=== PATIENT | male | born 1980 | race Caucasian/White ===

== ENCOUNTER 2020-05-21 21:50 | Emergency (ER) | payer BC ==
[~2020-05-21] VITALS: Ht 172.7 cm; Wt 83.9 kg
[2020-05-21] MEDS ORDERED: XARELTO10 MG ORAL (22:01)
--- NOTE | 2020-05-21 22:25 | NUR ---
ED Nurse Note: Patient walked into ER c/o left foot injury after hiking at around 1600 today. patient states that his left foot landed and twisted and heard a popping noise. Patient AAO x4, VSS at this time
[2020-05-21] MEDS ORDERED: IBUPROFEN200 M2 ORAL (22:26)
[2020-05-21] MEDS ORDERED: ACETAMINOPHEN500 M3 ORAL (22:26)
--- NOTE | 2020-05-21 22:26 | Diagnostic Imaging Report ---
EXAM: XR Left Foot Complete, 3 or More Views CLINICAL HISTORY: PAIN TECHNIQUE: Frontal, lateral and oblique views of the left foot. COMPARISON: No relevant prior studies available. FINDINGS: Bones/joints: Nondisplaced avulsion fracture at the base of the fifth metatarsal. No dislocation. Soft tissues: Unremarkable. No radiopaque foreign body. IMPRESSION: Fifth metatarsal base nondisplaced avulsion fracture.
--- NOTE | 2020-05-21 22:32 | Emergency Room Report ---
History of Present Illness General Chief Complaint: Lower Extremity Injury Source: Patient Present Illness HPI Patient is a 40-year-old male presents for increased pain to the left foot. Had injury earlier in the day. Prior history of anticoagulant use due to predisposition to venous thrombosis. He reports having inverted his ankle while hiking. [place] that it was a bone crack. Denies any other injury. Injury occurred earlier in the day. Allergies: Coded Allergies: No Known Allergies (Unverified , 05/21/20) COVID-19 Screening Contact w/high risk pt: No Experienced COVID-19 symptoms?: No COVID-19 Testing performed SALES AND MARKETING AGENT: No Patient History Past Medical History: see triage record Reviewed Nursing Documentation: PMH: Agreed; PSxH: Agreed Nursing Documentation-PMH Past Medical History: No History, Except For Review of Systems All Other Systems: negative except mentioned in HPI Physical Exam Vital Signs Date Time Temp Pulse Resp B/P (MAP) Pulse Ox O2 Delivery O2 Flow Rate FiO2 05/21/20 21:57 98.6 86 15 142/90 (107) 95 Room Air Sp02 EP Interpretation: reviewed, normal General Appearance: normal inspection, well appearing, no apparent distress, alert, GCS 15 Head: atraumatic ENT: normal ENT inspection, hearing grossly normal, normal voice Neck: normal inspection, full range of motion, supple, no bony tend Respiratory: normal inspection, lungs clear, normal breath sounds, no respiratory distress, no retraction, no wheezing Cardiovascular #1: regular rate, rhythm, no edema Gastrointestinal: normal inspection, normal bowel sounds, non tender, soft, no guarding, no hernia Genitourinary: no CVA tenderness Musculoskeletal: normal inspection, back normal, normal range of motion, swelling - foot swelling to left foot lateral aspect, no ankle tenderness Neurologic: alert, motor strength/tone normal, vascular surgery physician III-XII nml as tested, oriented x3, responsive, speech normal, normal inspection Psychiatric: normal inspection, judgement/insight normal, mood/affect normal Medical Decision Making Diagnostic Impression: Primary Impression: Foot fracture, left ER Course Patient presented for left foot pain. Differential diagnosis include was not limited to foot fracture, ankle sprain, contusion, muscle injury among others. X-ray imaging was ordered due to patient's recent injury. X imaging of the left foot showed proximal fifth metatarsal fracture which is nondisplaced. Patient was placed in a posterior splint. He was given crutches. Advised to follow-up with orthopedics for reevaluation and treatment. Advised to return if worse. This medical record is generated with [employer] jive developer software. There may be some jive developer discrepancies related to use of this software. Patient given prescription for pain medications. Last Vital Signs Date Time Temp Pulse Resp B/P (MAP) Pulse Ox O2 Delivery O2 Flow Rate FiO2 05/21/20 21:57 98.6 86 15 142/90 (107) 95 Room Air Status: improved Disposition: HOME, SELF-CARE Condition: Stable Scripts Acetaminophen* (ACETAMINOPHEN EXTRA STRENGTH*) 500 Mg Tablet 500 MG ORAL Q8H PRN for Fever/Headache/Mild Pain, #30 TAB Prov: Mono Kelly MD 05/21/20 Ibuprofen (IBUPROFEN) 200 Mg Capsule 200 MG ORAL Q8HR, #30 CAP 0 Refills Prov: Mono Kelly MD 05/21/20 Referrals: NON PHYSICIAN (PCP) Patient Instructions: Metatarsal Fracture Additional Instructions: Follow up with orthopedics. Return if worse. Keep your foot elevated as much as possible. Splint is temporary and should not be used for more than 2-3 days. Mono Kelly MD May 21, 2020 22:32
--- NOTE | 2020-05-21 22:53 | NUR ---
ED Nurse Note: posterior splint was placed patient tolerated procedure well
[2020-05-21 23:00] VITALS: BP 128/76
--- NOTE | 2020-05-21 23:00 | NUR ---
ER DISCHARGE NOTE: Patient is cleared to be discharged per ERMD, pt is aox4, on room air, with stable vital signs. pt was given dc and prescription instructions, pt was able to verbalize understanding, pt id band removed without complications. pt is able to ambulate with steady gait. pt took all belongings. patient applied splint and was given crutches
== END 2020-05-21 23:00 | disposition home or self-care (01) ==
LOC: EMR 22:11
DX: S92.355A Nondisplaced fracture of fifth metatarsal bone, left foot, initial encounter for closed fracture (principal); X50.1XXA Overexertion from prolonged static or awkward postures, initial encounter; Y93.01 Activity, walking, marching and hiking; Y92.9 Unspecified place or not applicable
CPT/HCPCS: 29515; 99283